=== PATIENT | male | born 1995 | race Caucasian/White ===

== ENCOUNTER 2020-04-27 10:19 | Emergency (ER) | payer SELFPAY ==
[~2020-04-27] VITALS: Ht 170.2 cm; Wt 74.8 kg
[2020-04-27 10:30] VITALS: BP 130/79; Ht 170.2 cm; Wt 74.8 kg
[2020-04-27 12:06] LABS: microscopic required? YES; urine erythrocyte NEGATIVE (NEGATIVE)
== END 2020-04-27 11:52 | disposition home or self-care (01) ==
LOC: ED 10:19
PROVIDERS: Specialist
DX: N39.0 Urinary tract infection, site not specified (principal); R36.9 Urethral discharge, unspecified
CPT/HCPCS: 87491; 87591; J0696

== ENCOUNTER 2020-07-12 10:04 | Emergency (ER) | payer OTHER ==
[~2020-07-12] VITALS: Ht 170.2 cm; Wt 74.8 kg
[2020-07-12 10:11] VITALS: Ht 170.2 cm; Wt 74.8 kg
[2020-07-12 10:47] VITALS: BP 127/76
== END 2020-07-12 10:47 | disposition other institution (70) ==
LOC: ED 10:04
DX: M62.830 Muscle spasm of back (principal); M25.511 Pain in right shoulder; Z20.828 Contact with and (suspected) exposure to other viral communicable diseases